=== PATIENT | female | born 2000 | race Caucasian/White ===

== ENCOUNTER 2024-06-01 18:52 | Emergency (ER) | payer OTHER, SELFPAY ==
[2024-06-01 18:55] VITALS: BP 134/96
[2024-06-01 21:23] VITALS: BP 125/83
--- NOTE | 2024-06-01 21:47 | ED.GENMED ---
History of Present Illness
General
Chief Complaint: Breathing Problem
Source: patient and family (Mother who is at bedside)
Exam Limitations: none
Time Seen by Provider: 06/01/24 21:43
Nursing documentation reviewed up to this point in time: agreed with
History of Present Illness
History of Present Illness:
This is a 23-year-old female with longstanding history of asthma, chronically maintained on inhaled corticosteroid, long-acting beta agonist, daily nebulizer treatments of budesonide and albuterol twice daily. She follows with a sample sawyer in
[facility] with last visit 1 week ago.
She admits to chronically poor control of her asthma more so since suffering COVID-19 URI in September 2023. She notes persistent daily cough since the wintertime with sporadic worsening of symptoms over the past 6 to 8 months. Sporadic oral
steroid use including a few rounds of steroids throughout the spring and most recently a 1 week course of prednisone 30 mg for 3 days, 20 mg for 2 days, 10 mg for 2 days that finished 2 days ago. Her last antibiotic was a Z-Schuyler this spring.
She admits to significant improvement in asthma symptoms for the first 3 days of steroids but then asthma symptoms worsened since then with increased congestion and more recently over the past few days increased mucus production that is yellowish to
green. She does not believe she has had a fever over the past week or 2. She does admit to a few loose stools with initial course of steroids but no nausea nor vomiting, no abdominal pain.
Lifelong non-smoker.
No recent travel.
No leg pain or swelling.
She does admit to intermittent chest pain, only noted with coughing and only noted first thing in the morning. Cough and congestion are worse at nighttime, in the morning and with activity. She has had some dyspnea on exertion.
Her next appointment with sample sawyer is in 3 weeks but with worsening symptoms was recommended to come to the ED to have a chest x-ray.
With last appointment with sample sawyer 1 week ago her maintenance inhaler was changed to Breztri, 2 puffs twice daily.
She denies risk of , last normal menstrual period ended last week. Normal and on time.
Home COVID test was negative earlier today.
Past History
Past History
ED Past Medical History: Asthma
ED Past Surgical History: None
Social History
Tobacco: Non-smoker
Personal: Single
Living: with family
Employment: Employed
Family History
Family History: Other (Noncontributory)
Phy Exam
Physical Exam
Physical Exam:
GENERAL: 23-year-old female appears her stated age, bright and alert, pleasant, appears in no acute distress. Intermittent moist nonproductive cough is noted. Respirations are easy and nonlabored. Vital signs reviewed, within normal limits.
Mother is accompanying.
EYE: anicteric
NECK: Supple, nontender, no meningismus, no significant adenopathy. No JVD.
ENT: posterior pharynx is clear, oral mucosa is moist. TM clear b/l, nares have moderately boggy pale blue turbinates with scant clear rhinorrhea.
CARDIAC: Regular rate and rhythm. no murmur. No rub.
LUNGS: no acute respiratory distress, coarse rhonchi throughout especially bilateral bases.
ABDOMEN: Soft, nondistended, without focal tenderness
NEUROLOGICAL: Alert and oriented x3, no focal neuro deficits. Gait is celeste and steady.
SKIN: Warm and dry, normal color, skin intact. No rash.
MUSCULOSKELETAL: No C/C/E. peripheral pulses are full and equal b/l. No palpable tenderness.
PSYCH: Normal and appropriate interaction.
Scores
Heart Failure Risk
Heart Failure Risk Score: Not Applicable
Course
Orders/Labs/Results
Orders:
Orders
06/01/24 18:58
CR Chest - 2 Views Urgent
Comment:
Reason For Exam: cough
06/01/24 18:59
ECG [Electrocardiogram (*1)] Urgent
Reason for Study: Chest Pain
EKG- Treatment ONCE
06/01/24 22:10
Doxycycline [Vibramycin] 100 mg PO NOW STA
Pantoprazole [Protonix] 40 mg PO NOW STA
Prednisone [Deltasone] 30 mg PO NOW STA
Vital Signs
Initial and Last Documented VS:
Initial Vital Signs
Temp Pulse Resp BP Pulse Ox
98.3 F 89 20 134/96 98
06/01/24 18:55 06/01/24 18:55 06/01/24 18:55 06/01/24 18:55 06/01/24 18:55
Last Documented Vital Signs
Temp Pulse Resp BP Pulse Ox
98.3 F 88 16 125/83 98
06/01/24 18:55 06/01/24 21:45 06/01/24 21:45 06/01/24 21:23 06/01/24 21:45
MDM/Problems Addressed
Differential Diagnosis Includes:
23-year-old with longstanding history of poorly controlled asthma presents with worsening symptoms over the past week reporting increased cough productive of yellowish/green phlegm.
Home COVID testing has been negative and history of COVID-19 URI September 2023. Recurrent COVID URI is unlikely.
There is some concern for occult pneumonia versus acute on chronic exacerbation of asthma.
No history of cardiomyopathy, CHF.
No risk factors for thromboembolism.
Reports 2 days of loose stools last week which has since resolved. No other GI symptoms and appetite has been good. Clinically appears euvolemic.
No indication for laboratory studies.
Chest x-ray obtained. Reviewed by myself reveals mild hyperinflation. Mild bilateral interstitial lung disease but more prominent right middle lobe compared to left concerning for subtle focal infiltrate and with report of increased mucus
production/yellowish-green in nature will initiate a course of doxycycline for coverage of potential pneumonia.
Recommend resumption of oral steroids as patient admittedly had felt better on oral steroids initially at 30 mg daily. Would recommend a higher dose but patient reports inability to tolerate higher doses reporting increased anxiety, palpitations,
etc. thus would recommend resumption of 30 mg daily with lengthier taper.
Will add a PPI while taking prednisone for GI protection.
Continue maintenance inhalers, continue nebulizer treatments.
Discussed importance of staying well-hydrated on a daily basis.
Prompt follow-up with sample sawyer for recheck and patient will be referred to local sample sawyer.
Return precautions discussed.
Chronic conditions affecting care: Asthma
Acute Exacerbation and/or Progression of Chronic Illness: Asthma
*Radiology
Radiology exam reviewed: preliminary read by ED provider (Chest x-ray shows mild hyperinflation, mild interstitial lung disease bilaterally but more pronounced right middle lobe concerning for focal/subtle infiltrate. No old films to compare.)
*Pulse Oximetry
Patient hypoxic: no
*EKG
Interpreted by ED Provider?: Yes
Interpretation: normal
Comparison EKG: no comparison EKG present
Rate: normal
Rhythm: sinus
[place] Level: normal axis
Interval: normal interval
QRS Pattern: normal QRS
Ischemia: no ischemia
*[employer] Interpretation
Rate: normal
Interpretation: normal
Rhythm: sinus
*Critical Care Note
Total Time (30-74mins, 75-104mins- exclusive of procedures): Not Applicable
ED Attending Note
-
Portions of this chart may have been created with voice recognition software.� Occasional wrong word or��sound alike� substitutions may have occurred due to the inherent limitations of voice recognition software.
Discharge Plan
Departure
Patient Disposition: Home (Routine Discharge)
Date of Disposition: 06/01/24
Time of Disposition: 22:27
Patient with high blood pressure during this ER visit?: No
Condition: Good
Discharge Problem:
Chronic asthma with acute exacerbation, concern for CAP
Instructions: Asthma, Adult (DC)
Prescriptions:
New
prednisone 10 mg tablet
10 mg PO DIRECTED Qty: 45 0RF
Rx Instructions:
30 MG OD for 7 days, then 20 mg OD for 7 days, then 10 mg OD for 7 days, then 10 mg EOD for 6 days.
doxycycline monohydrate 100 mg capsule
100 mg PO BID Qty: 20 1RF
pantoprazole [Protonix] 40 mg tablet,delayed release (DR/EC)
40 mg PO DAILY Qty: 30 0RF
Referrals:
Luis Mayorga MD [Family Provider] -
Isaiah Deng MD [Active] - Call in 1-3 days for appt
Interventions
Interventions:
*Risk Screen - Suicide Last Done: 06/01/24 18:55
*General Assessment Last Done: 06/01/24 18:55
*Neglect/Abuse Screening Last Done: 06/01/24 18:55
ED- Cardiac Assessment Last Done: 06/01/24 21:24
ED- Pulmonary Assessment Last Done: 06/01/24 21:24
Discharge Date and Time
Print Language: MONGOLIAN
[2024-06-01 22:00] VITALS: BP 124/83
[2024-06-01] MEDS: VIBRAMYCIN 100 MG PO (22:21)
[2024-06-01] MEDS: PROTONIX 40 MG PO (22:21)
[2024-06-01] MEDS: DELTASONE 30 MG PO (22:21)
== END 2024-06-01 22:41 | disposition home or self-care (01) ==
LOC: EMR 18:52
PROVIDERS: EMERGENCY PHYSICIAN Emergency Medicine; FAMILY PHYSICIAN Allergy & Immunology
DX: J45.909 Unspecified asthma, uncomplicated (principal)
CPT/HCPCS: 99284; 71046; 93005